=== PATIENT | female | born 1975 | race Caucasian/White ===

== ENCOUNTER 2017-01-16 15:35 | Emergency (ER) | payer SELFPAY ==
--- NOTE | 2017-01-16 16:05 | ER Document Report ---
HPI - HPI Patient complains to provider of: urinary symptoms Onset: This morning Onset/Duration: Gradual Quality of pain: Burning Pain Level: 3 Context: Patient presents complaining of urinary frequency, dysuria and hematuria that started this morning. Patient does complain of some suprapubic tenderness and right lower back pain. Patient does states she has chronic back pain and is uncertain if this back pain is her chronic pain or may be symptoms of possible kidney stone. Patient does report history kidney stones in the past. Patient denies any vomiting or fever. Associated Symptoms: denies: Fever, Nausea, Vomiting Exacerbated by: Denies Relieved by: Denies Similar symptoms previously: Yes Recently seen / treated by doctor: No - ROS ROS below otherwise negative: Yes Systems Reviewed and Negative: Yes All other systems reviewed and negative - CONSTITUTIONAL Constitutional: DENIES: Fever - NEURO Neurology: DENIES: Weakness - GASTROINTESTINAL Gastrointestinal: REPORTS: Abdominal Pain. 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 Denies: Hx Peritoneal Dialysis Musculoskeltal Medical History: Reports Hx Arthritis, Reports Other - chronic back pain Past Surgical History: Reports: Hx Hysterectomy, Hx Orthopedic Surgery - back surgery x3, Hx Thyroid Surgery - removed, Hx Tonsillectomy, Hx Tubal Ligation. Denies: Hx Pacemaker - Immunizations Hx Diphtheria, Pertussis, Tetanus Vaccination: Yes Vertical Provider Document - CONSTITUTIONAL Agree With Documented VS: Yes Exam Limitations: No Limitations General Appearance: WD/WN, No Apparent Distress - INFECTION CONTROL TRAVEL OUTSIDE OF THE [place] IN LAST 30 DAYS: No - HEENT HEENT: Atraumatic, Normocephalic - NECK Neck: Normal Inspection - RESPIRATORY Respiratory: Breath Sounds Normal, No Respiratory Distress O2 Sat by Pulse Oximetry: 98 - CARDIOVASCULAR Cardiovascular: Regular Rate, Regular Rhythm, No Murmur - GI/ABDOMEN Gastrointestinal: Abdomen Soft, Abdomen Tender - suprapubic tenderness, No Organomegaly - BACK Back: CVA Tenderness-Right. negative: CVA Tenderness-Left - MUSCULOSKELETAL/EXTREMETIES Musculoskeletal/Extremeties: GREGORY FROM - NEURO Level of Consciousness: Awake, Alert, Appropriate Motor/Sensory: No Motor Deficit - DERM Integumentary: Warm, Dry, No Rash Course - Re-evaluation Re-evalutation: 01/16/17 17:[address] Ambriz regarding pt presentation, hx and exam findings, Dr Ambriz recommends ct ltd. 01/16/17 18:[address] Ambriz who advises US imaging 01/16/17 20:25 Patient was provided with copies of her ultrasound and CT reports and instructed to follow-up with urology as well as grocery supervisor. Patient verbalized understanding and agrees with plan of care. - Vital Signs Vital signs: Temp Pulse Resp BP Pulse Ox 97.7 F 64 18 114/51 L 98 01/16/17 15:40 01/16/17 15:40 01/16/17 15:40 01/16/17 15:40 01/16/17 15:40 - Laboratory Result Diagrams: 01/16/17 16:38 01/16/17 16:38 - Diagnostic Test Radiology reviewed: Reports reviewed Discharge - Discharge Clinical Impression: UTI (urinary tract infection) Qualifiers: Urinary tract infection type: site unspecified Hematuria presence: with hematuria Qualified Code(s): N39.0 - Urinary tract infection, site not specified Fibroid uterus Qualifiers: Uterine leiomyoma location: unspecified location Qualified Code(s): D25.9 - Leiomyoma of uterus, unspecified Condition: Stable Disposition: HOME, SELF-CARE Instructions: Trimethoprim-Sulfa ([facility]), Urinary Tract Infection ([facility]), Urinary Anesthetic Agent ([facility]) Additional Instructions: Return immediately for any new or worsening symptoms Followup with your primary care provider, call tomorrow to make a followup appointment Follow-up with a urologist for further evaluation of intrarenal kidney stone as well as thickened wall of bladder Follow-up with a grocery supervisor for further evaluation of uterine fibroids Prescriptions: Phenazopyridine HCl [Pyridium 200 mg Tablet] 200 mg PO TID #15 tablet Sulfamethoxazole/Trimethoprim [Bactrim Ds Tablet] 1 each PO BID #20 tablet Forms: Parent Work Note Referrals: ELISHA PORTILLO MD [Primary Care Provider] - Follow up as needed UROLOGY [Provider Group] - Follow up in 3-5 days [facility] [Provider Group] - Follow up in 3-5 days
[2017-01-16 16:47] LABS: APPEARANCE,URINE CLOUDY; BILIRUBIN,URINE NEGATIVE (NEGATIVE); GLUCOSE, URINE NEGATIVE (NEGATIVE); KETONES,URINE NEGATIVE (NEGATIVE); LEUKOCYTE ESTERASE,URINE LARGE (NEGATIVE); NITRITE,URINE NEGATIVE (NEGATIVE); PROTEIN,URINE 100 mg/dL (NEGATIVE); URINE SPECIFIC GRAVITY 1.014; UROBILINOGEN,URINE NEGATIVE mg/dL (<2.0)
[2017-01-16 16:49] LABS: ABSOLUTE BASOPHILS # (AUTO) 0.1 10^3/uL (0.0-0.2); ABSOLUTE EOSINOPHILS # (AUTO) 0.4 10^3/uL (0.0-0.6); ABSOLUTE LYMPHOCYTES (AUTO) 2.3 10^3/uL (0.5-4.7); ABSOLUTE MONOCYTES (AUTO) 0.7 10^3/uL (0.1-1.4); ABSOLUTE NEUT (AUTO) 10.4 10^3/uL (1.7-8.2); BASOPHILS % (AUTO) 0.6 % (0-2); EOSINOPHILS % (AUTO) 2.6 % (0-6); HEMATOCRIT 38.2 % (36.0-47.0); HEMOGLOBIN 13.1 g/dL (12.0-15.5); HGB HCT DIFFERENCE 1.1; LYMPHOCYTES % (AUTO) 16.8 % (13-45); MEAN CORPUSCULAR HEMOGLOBIN 31.9 pg (27.0-33.4); MEAN CORPUSCULAR HGB CONC 34.2 g/dL (32.0-36.0); MEAN CORPUSCULAR VOLUME 93 fl (80-97); MONOCYTES % (AUTO) 5.3 % (3-13); RED CELL DISTRIBUTION WIDTH 14.2 % (11.5-14.0); SEGMENTED NEUTROPHILS % (AUTO) 74.7 % (42-78); WHITE BLOOD COUNT 13.9 10^3/uL (4.0-10.5)
[2017-01-16 17:09] LABS: ALANINE AMINOTRANSFERASE 40 U/L (9-52); ALBUMIN 3.9 g/dL (3.5-5.0); ALKALINE PHOSPHATASE 53 U/L (38-126); ANION GAP 9 (5-19); ASPARTATE AMINO TRANSFERASE 27 U/L (14-36); BILIRUBIN,DIRECT 0.3 mg/dL (0.0-0.4); BILIRUBIN,TOTAL 0.4 mg/dL (0.2-1.3); BLOOD UREA NITROGEN 15 mg/dL (7-20); CALCIUM 8.8 mg/dL (8.4-10.2); CARBON DIOXIDE 23 mmol/L (22-30); CHLORIDE 106 mmol/L (98-107); GLUCOSE 73 mg/dL (75-110); POTASSIUM 3.8 mmol/L (3.6-5.0); SODIUM 137.8 mmol/L (137-145); TOTAL PROTEIN 6.6 g/dL (6.3-8.2)
--- NOTE | 2017-01-16 18:12 | RADIOLOGY REPORT (SQ) ---
EXAM DESCRIPTION: CT LTD RENAL STONE PROTOCOL ON COMPLETED DATE/TIME: 01/16/2017 5:48 pm REASON FOR STUDY: r flank pain COMPARISON: None. TECHNIQUE: CT scan of the abdomen and pelvis performed without intravenous or oral contrast. Images reviewed with lung, soft tissue, and bone windows. Reconstructed coronal and sagittal MPR images revi ewed. All images stored on PACS. All CT scanners at this facility use dose modulation, iterative reconstruction, and/or weight based d osing when appropriate to reduce radiation dose to as low as reasonably achievable (ALARA). [facility]: Dose Right [facility]: CareDose [facility]: Dose Right [facility]: Teradose 4D [facility]: Smart Boutir RADIATION DOSE: Up-to-date CT equipment and radiation dose reduction techniques were employed. CTDIv ol: 6.8 mGy. DLP: 373 mGy-cm.mGy. LIMITATIONS: Lack of intraperitoneal fat and streak artifact from hardware of the lumbar spine limit s detail. FINDINGS: LOWER CHEST: Lung bases are clear. Likely small hiatus hernia. NON-CONTRASTED LIVER, SPLEEN, ADRENALS: Evaluation limited by lack of IV contrast. No identified sign ificant masses. PANCREAS: No masses. No peripancreatic inflammatory changes. GALLBLADDER: No identified stones by CT criteria. No inflammatory changes to suggest cholecystitis. RIGHT KIDNEY AND URETER: No suspicious masses. Assessment limited by lack of IV contrast. No signif icant calcifications. No hydronephrosis or hydroureter. LEFT KIDNEY AND URETER: No suspicious masses. Assessment limited by lack of IV contrast. Tiny 2 mm nonobstructing stone. No hydronephrosis or hydroureter. AORTA AND RETROPERITONEUM: No aneurysm. No retroperitoneal masses or adenopathy. BOWEL AND PERITONEAL CAVITY: No obvious masses or inflammatory changes. No free fluid. APPENDIX: Not visualized. PELVIS, BLADDER, AND ABDOMINAL WALL:Enlarged uterus. Wall thickening nondilated urinary bladder. Co nsider ultrasound follow-up for greater detail of the uterus. BONES: Operative hardware and disc spacer L5-S1. OTHER: No other significant finding. IMPRESSION: No hydronephrosis of either kidney. Tiny 2 mm nonobstructing stone left kidney. Pelvis densities concerning for enlarged uterus. Consider ultrasound for greater detail. Wall thickening nondilated urinary bladder. TECHNICAL DOCUMENTATION: JOB ID: [id number] Quality ID # [id number]: Final reports with documentation of one or more dose reduction techniques (e.g., Au tomated exposure control, adjustment of the mA and/or kV according to patient size, use of iterative reconstruction technique) 2010 [employer]- All Rights Reserved
[2017-01-16] MEDS ORDERED: SULFAMETHOXAZOLE/TRIMETHOPRIM 800-160 MG TABLET PO ONE (18:31)
[2017-01-16] MEDS ORDERED: LIDOCAINE 1% INJ-PF (10 MG/ML) 30 ML SDV INJ ONE (18:31)
[2017-01-16] MEDS ORDERED: CEFTRIAXONE INJ 1000 MG VIAL IM ONE ×2 (18:31→19:09)
--- NOTE | 2017-01-16 20:08 | RADIOLOGY REPORT (SQ) ---
EXAM DESCRIPTION: U/S NON OB PEL TV W/DOPPLER COMPLETED DATE/TIME: 01/16/2017 7:59 pm REASON FOR STUDY: eval enlarged uterus COMPARISON: CT dated 01/16/2017. TECHNIQUE: Dynamic and static grayscale images acquired of the pelvis via transvaginal approach and recorded on PACS. Additional selected color Doppler and spectral images recorded. LIMITATIONS: None. FINDINGS: UTERUS: Multiple heterogeneous lesion seen within the uterus suggestive of underlying fibr oids. The largest these measures approximately 4.5 x 4.0 x 3.8 cm. ENDOMETRIAL STRIPE: No focal or generalized thickening. No masses. CERVIX: No nabothian cysts. RIGHT OVARY: No abnormal masses. RIGHT OVARY DOPPLER: Normal arterial vascular flow without evidence for torsion. LEFT OVARY: No abnormal masses. LEFT OVARY DOPPLER: Normal arterial vascular flow without evidence for torsion. FREE FLUID: None noted. OTHER: No other significant finding. MEASUREMENTS: UTERUS: 10.1 x 6.6 cm ENDOMETRIAL STRIPE: 2 mm RIGHT OVARY: 2.7 x 2.7 x 3.0 cm LEFT OVARY: 2.5 x 1.8 x 3.0 cm IMPRESSION: Fibroid uterus the largest which measures 4.5 x 4.0 x 3.8 cm. No other significant abno rmality identified. No evidence of ovarian torsion. TECHNICAL DOCUMENTATION: JOB ID: [id number] [employer]- All Rights Reserved
[2017-01-16 20:44] VITALS: BP 102/51
== END 2017-01-16 20:44 | disposition home or self-care (01) ==
LOC: ER 15:35
DX: N39.0 Urinary tract infection, site not specified (principal); R31.9 Hematuria, unspecified; D25.9 Leiomyoma of uterus, unspecified; M54.5 Low back pain; G89.29 Other chronic pain; F17.200 Nicotine dependence, unspecified, uncomplicated
CPT/HCPCS: 99284; 96372; 36415; 87086; 85025; 81025; 87088; 80053; 81001; 87186; 76830; 93976; 76380; J3490; J0696

== ENCOUNTER 2017-02-18 13:41 | Emergency (ER) | payer SELFPAY ==
--- NOTE | 2017-02-18 14:35 | ER Document Report ---
ED Medical Screen (RME) - General Chief Complaint: Abdominal Pain Stated Complaint: ABDOMINAL PAIN Time Seen by Provider: 02/18/17 14:32 Notes: Patient reports bilateral lower quadrant abdominal pain. She has also been lightheaded and dizzy. She denies any vaginal bleeding. No urinary symptoms. No problems with stool. TRAVEL OUTSIDE OF THE [place] IN LAST 30 DAYS: No - Related Data Allergies/Adverse Reactions: No Known Allergies Allergy (Verified 02/18/17 13:48) Home Medications: Current Home Medications Gabapentin 300 mg PO QID 02/18/17 [History] Levothyroxine Sodium [Synthroid] 175 mcg PO 02/18/17 [History] Methadone HCl QID 02/18/17 [History] Past Medical History - Past Medical History Cardiac Medical History: Denies: Hx Coronary Artery Disease, Hx Heart Attack, Hx Hypertension Pulmonary Medical History: Denies: Hx Asthma, Hx Bronchitis, Hx COPD, Hx Pneumonia Neurological Medical History: Denies: Hx Cerebrovascular Accident, Hx Seizures Endocrine Medical History: Reports: Hx Hypothyroidism Renal/ Medical History: Reports: Hx Kidney Stones. Denies: Hx Peritoneal Dialysis Musculoskeltal Medical History: Reports Hx Arthritis Past Surgical History: Reports: Hx Hysterectomy, Hx Orthopedic Surgery - back surgery x3, Hx Thyroid Surgery - removed, Hx Tonsillectomy, Hx Tubal Ligation. Denies: Hx Pacemaker - Immunizations Hx Diphtheria, Pertussis, Tetanus Vaccination: Yes Physical Exam - Vital signs Vitals: Temp Pulse Resp 97.8 F 66 20 02/18/17 13:52 02/18/17 13:52 02/18/17 13:52 Course - Vital Signs Vital signs: Temp Pulse Resp BP Pulse Ox 97.8 F 66 20 02/18/17 13:52 02/18/17 13:52 02/18/17 13:52
[2017-02-18 15:00] LABS: ABSOLUTE BASOPHILS # (AUTO) 0.1 10^3/uL (0.0-0.2); ABSOLUTE EOSINOPHILS # (AUTO) 0.4 10^3/uL (0.0-0.6); ABSOLUTE LYMPHOCYTES (AUTO) 2.6 10^3/uL (0.5-4.7); ABSOLUTE MONOCYTES (AUTO) 0.5 10^3/uL (0.1-1.4); ABSOLUTE NEUT (AUTO) 5.4 10^3/uL (1.7-8.2); BASOPHILS % (AUTO) 1.2 % (0-2); EOSINOPHILS % (AUTO) 4.5 % (0-6); HEMATOCRIT 40.4 % (36.0-47.0); HEMOGLOBIN 13.8 g/dL (12.0-15.5); LYMPHOCYTES % (AUTO) 28.4 % (13-45); MEAN CORPUSCULAR HEMOGLOBIN 31.9 pg (27.0-33.4); MEAN CORPUSCULAR HGB CONC 34.2 g/dL (32.0-36.0); MEAN CORPUSCULAR VOLUME 93 fl (80-97); RED BLOOD COUNT 4.33 10^6/uL (3.72-5.28); RED CELL DISTRIBUTION WIDTH 15.2 % (11.5-14.0); SEGMENTED NEUTROPHILS % (AUTO) 59.9 % (42-78); WHITE BLOOD COUNT 9.1 10^3/uL (4.0-10.5)
[2017-02-18 15:02] LABS: APPEARANCE,URINE SLIGHTLY-CLOUDY; BILIRUBIN,URINE NEGATIVE (NEGATIVE); CALCIUM OXALATE CRYSTALS,URINE MODERATE /HPF; GLUCOSE, URINE NEGATIVE (NEGATIVE); KETONES,URINE NEGATIVE (NEGATIVE); LEUKOCYTE ESTERASE,URINE NEGATIVE (NEGATIVE); NITRITE,URINE NEGATIVE (NEGATIVE); PROTEIN,URINE NEGATIVE (NEGATIVE); URINE SPECIFIC GRAVITY 1.023
[2017-02-18 15:04] LABS: POTASSIUM 3.6 mmol/L (3.6-5.0)
[2017-02-18 15:06] LABS: ALBUMIN 4.5 g/dL (3.5-5.0); ALKALINE PHOSPHATASE 44 U/L (38-126); ANION GAP 9 (5-19); ASPARTATE AMINO TRANSFERASE 56 U/L (14-36); BILIRUBIN,DIRECT 0.4 mg/dL (0.0-0.4); BILIRUBIN,TOTAL 0.5 mg/dL (0.2-1.3); BLOOD UREA NITROGEN 18 mg/dL (7-20); CALCIUM 9.6 mg/dL (8.4-10.2); CARBON DIOXIDE 27 mmol/L (22-30); CHLORIDE 106 mmol/L (98-107); CREATININE RESULT 0.93 mg/dL (0.52-1.25); GLUCOSE 73 mg/dL (75-110); SODIUM 142.4 mmol/L (137-145); TOTAL PROTEIN 6.9 g/dL (6.3-8.2)
[2017-02-18 15:08] LABS: ALANINE AMINOTRANSFERASE 97 U/L (9-52)
--- NOTE | 2017-02-18 17:18 | RADIOLOGY REPORT (SQ) ---
EXAM DESCRIPTION: U/S NON OB PEL TV W/DOPPLER COMPLETED DATE/TIME: 02/18/2017 4:59 pm REASON FOR STUDY: Lower mid abd/plvc pain, negative COMPARISON: 01/16/2017 TECHNIQUE: Dynamic and static grayscale images acquired of the pelvis via transvaginal approach and recorded on PACS. Additional selected color Doppler and spectral images recorded. LIMITATIONS: None. FINDINGS: UTERUS: Multiple fibroids again noted with the largest measuring 5.4 cm. ENDOMETRIAL STRIPE: No focal or generalized thickening. No masses. CERVIX: No nabothian cysts. RIGHT OVARY: No abnormal masses. Collapsing follicle. RIGHT OVARY DOPPLER: Normal arterial vascular flow without evidence for torsion. LEFT OVARY: No abnormal masses. LEFT OVARY DOPPLER: Normal arterial vascular flow without evidence for torsion. FREE FLUID: None noted. OTHER: No other significant finding. MEASUREMENTS: UTERUS: 10.2 x 9.0 x 5.6 cm. ENDOMETRIAL STRIPE: 8 mm. RIGHT OVARY: 6.3 x 4.5 x 3.5 cm. LEFT OVARY: 2.7 x 3.0 x 1.5 cm. IMPRESSION: FIBROID UTERUS. NO SIGNIFICANT OVARIAN MASS OR TORSION. NO SIGNIFICANT CHANGE FROM 01/16/2017. TECHNICAL DOCUMENTATION: JOB ID: [id number] [employer]- All Rights Reserved
[2017-02-18 17:35] LABS: CHLAM PCR NOT DETECTED (NOT DETECT)
--- NOTE | 2017-02-18 18:23 | ER Document Report ---
ED GI/ - General Chief Complaint: Abdominal Pain Stated Complaint: ABDOMINAL PAIN Time Seen by Provider: 02/18/17 14:32 Notes: Patient is experiencing lower midline abdominal pain that started yesterday morning. Prior to that, over the weekend, she had had some lightheaded and dizzy spells with tingling of her arms and legs. Also having aching and cold symptoms Friday. Her pain is so uncomfortable now that she is having difficulty standing up straight. Has been nauseated but not vomiting. No diarrhea. Last bowel movement was yesterday. Not running any fever. Denies any UTI symptoms or history of kidney stones. Denies URI symptoms or cough or chest congestion. Reviewing patient's record shows the patient was here in December, 1 month ago, and had an ultrasound showing uterine fibroids. TRAVEL OUTSIDE OF THE [place] IN LAST 30 DAYS: No - Related Data Allergies/Adverse Reactions: No Known Allergies Allergy (Verified 02/18/17 13:48) Home Medications: Current Home Medications Gabapentin 300 mg PO QID 02/18/17 [History] Levothyroxine Sodium [Synthroid] 175 mcg PO DAILY 02/18/17 [History] Methadone HCl 10 mg PO TID 02/18/17 [History] Naproxen 500 mg PO PRN PRN 02/18/17 [History] Past Medical History - Social History Smoking Status: Never Smoker Chew tobacco use (# tins/day): No Frequency of alcohol use: None Drug Abuse: None Family History: Reviewed & Not Pertinent, CAD, DM, Hypertension Patient has suicidal ideation: No Patient has homicidal ideation: No Endocrine Medical History: Reports: Hx Hypothyroidism, Other - 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 Renal/ Medical History: Reports: Hx Kidney Stones Musculoskeltal Medical History: Reports Hx Arthritis, Reports Other - Back surgery and chronic back pain on methadone and Neurontin. Past Surgical History: Reports: Hx Gynecologic Surgery - NovaSure uterine ablation about 5 years ago., Hx Hysterectomy, Hx Orthopedic Surgery - back surgery x3, Hx Thyroid Surgery - removed, Hx Tonsillectomy, Hx Tubal Ligation - Immunizations Hx Diphtheria, Pertussis, Tetanus Vaccination: Yes Review of Systems - Review of Systems Notes: REVIEW OF SYSTEMS: CONSTITUTIONAL : Denies fever. EENT: Denies eye, ear, nose or mouth or throat pain or other symptoms. CARDIOVASCULAR: Denies chest pain. RESPIRATORY: Denies cough, chest congestion, or shortness of breath. Gastroenterology: See HPI. GENITOURINARY: Denies difficulty or painful urinating, urinary frequency, blood in urine. MUSCULOSKELETAL: Denies back or neck pain. Denies joint pain or swelling. SKIN: Denies rash or skin lesions. NEUROLOGICAL: Denies LOC or altered mental status. Denies headache. Denies sensory loss or motor deficits. ALL OTHER SYSTEMS REVIEWED AND NEGATIVE. Physical Exam - Vital signs Vitals: Temp Pulse Resp 97.8 F 66 20 02/18/17 13:52 02/18/17 13:52 02/18/17 13:52 Interpretation: Normal - Notes Notes: PHYSICAL EXAMINATION: GENERAL: Well-appearing, in no acute distress. Vital signs are all essentially normal. HEAD: Atraumatic, normocephalic. NECK: Normal range of motion, supple. LUNGS: Breath sounds clear and equal bilaterally. HEART: Regular rate and rhythm without murmurs. ABDOMEN: Soft, mild tenderness in the suprapubic area. No guarding or rebound. No masses felt. No bruits heard. BACK: No tenderness throughout entire back. EXTREMITIES: Normal range of motion without pain. NEUROLOGICAL: Normal speech, normal gait. Normal sensory, motor, and reflex exams. Awake, alert, and oriented x3. Cranial nerves normal. PSYCH: Normal mood, normal affect. SKIN: Warm, dry, no rashes. - Genitourinary External exam: Normal Speculum exam: Cervix closed. No: Vaginal discharge, Lesions Vaginal bleeding: None Bimanuel exam: Uterus enlarged. No: Cervical motion tender, Adnexal mass, Adnexal tenderness Course - Vital Signs Vital signs: Temp Pulse Resp BP Pulse Ox 97.7 F 55 L 18 106/60 97 02/18/17 18:30 02/18/17 18:30 02/18/17 18:30 02/18/17 18:30 02/18/17 18:30 - Laboratory Result Diagrams: 02/18/17 14:35 02/18/17 14:35 Laboratory results interpreted by me: 02/18/17 02/18/17 02/18/17 14:35 14:35 14:35 RDW 15.2 H Glucose 73 L AST 56 H ALT 97 H Urine Urobilinogen 2.0 H - Diagnostic Test Radiology reviewed: Image reviewed, Reports reviewed - Ultrasound shows multiple uterine fibroids. Discharge - Discharge Clinical Impression: Pelvic pain, Uterine fibroid Condition: Stable Disposition: HOME, SELF-CARE Additional Instructions: PELVIC PAIN: There are many causes of pain in the pelvic area. The cause could be the tubes, ovaries, uterus, intestines, appendix, pelvic muscles and connective tissue, or the urinary tract. The cause of your pelvic pain is not clear. However, it seems safe to treat you outside the hospital. If the pain sounds like a temporary problem, we sometimes wait to see if it goes away. Other patients may need additional tests, such as pelvic ultrasound or cultures. Conditions may change. Call us or come back for reexamination if any problems occur, such as: (1) Pain that becomes more severe, steady, or becomes concentrated in one specific area. Also, pain that is more severe with movement or coughing. (2) Vomiting that persists or becomes more frequent. (3) Blood in the vomitus, urine, or bowel movements. Blood in the stool may have a tarry or black appearance. (4) Shaking chills or fever greater than 100 degrees. (5) The abdomen becomes more distended or swollen. (6) Bowel movements cease. (7) Heavy vaginal bleeding. Fibroids Fibroids are benign growths in the uterus. They can cause enlargement of the uterus, irregular bleeding, sever bleeding with periods, and abdominal pain. Anemia may result if periods are heavy. Fibroids tend to grow until menopause, then slwly shrink. If fibroids cause severe symptoms, they can be treated surgically. Call or return if vaginal bleeding or pain becomes severe. Ibuprofen Ibuprofen is an excellent, safe drug for pain control. In addition, it has potent antiinflammatory effects which are beneficial, especially in the treatment of injuries, arthritis, or tendonitis. It's best to take ibuprofen with food. Persons with ulcer disease or allergy to aspirin should notify their physician of this before taking ibuprofen. Take the medication exactly as prescribed. Don't take additional doses unless instructed to do so by your doctor. If you develop wheezing, shortness of breath, hives, faintness, stomach pain, vomiting, or dark black stools, return for re-evaluation at once. ORAL NARCOTIC MEDICATION: You have been given a prescription for pain control. This medication is a narcotic. It's best taken with food, as nausea can result if taken on an empty stomach. Don't operate machinery or drive within six hours of taking this medication. Do not combine this medicine with alcohol, or with any medication which can cause sedation (such as cold tablets or sleeping pills) unless you get permission from the physician. Narcotics tend to cause constipation. If possible, drink plenty of fluids and eat a diet high in fiber and fruits. FOLLOW-UP CARE: If you have been referred to a physician for follow-up care, call the physician s office for an appointment as you were instructed or within the next two days. If you experience worsening or a significant change in your symptoms, notify the physician immediately or return to the Emergency Department at any time for re-evaluation. If you wish to pursue further care for these findings of uterine fibroids, I recommend that you follow-up at [facility] for possible surgical removal Prescriptions: Oxycodone HCl/Acetaminophen [Percocet 5-325 mg Tablet] 1 - 2 tab PO Q4H PRN #15 tablet PRN Reason: Forms: Return to Work Referrals: [facility] [Provider Group] - Follow up as needed
[2017-02-18 18:53] VITALS: BP 106/60
== END 2017-02-18 18:30 | disposition home or self-care (01) ==
LOC: ER 13:41
DX: D25.9 Leiomyoma of uterus, unspecified (principal); R10.2 Pelvic and perineal pain; R11.0 Nausea; E89.0 Postprocedural hypothyroidism; Z85.850 Personal history of malignant neoplasm of thyroid; Z90.710 Acquired absence of both cervix and uterus
CPT/HCPCS: 36415; 76830; 80053; 81001; 81025; 83690; 85025; 87210; 87491; 87591; 93976; 99284

== ENCOUNTER 2017-12-27 06:56 | Emergency (ER) | payer BC, MEDICAID ==
--- NOTE | 2017-12-27 07:37 | ER Document Report ---
HPI - HPI Patient complains to provider of: Dysuria Onset: Yesterday Onset/Duration: Gradual Quality of pain: Burning Pain Level: 4 Context: Patient presents complaining of lower pelvic pain with hematuria and urinary frequency. Patient denies any fever, nausea or vomiting. Patient denies any concerns about STD. Associated Symptoms: Other - frequency, hematuria. denies: Fever Exacerbated by: Denies Relieved by: Denies Similar symptoms previously: Yes Recently seen / treated by doctor: No - ROS ROS below otherwise negative: Yes Systems Reviewed and Negative: Yes All other systems reviewed and negative - GASTROINTESTINAL Gastrointestinal: REPORTS: Abdominal Pain. 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 Denies: Hx Peritoneal Dialysis Musculoskeltal Medical History: Reports Hx Arthritis, Reports Other - Chronic back pain Past Surgical History: Reports: Hx Gynecologic Surgery - NovaSure uterine ablation about 5 years ago., Hx Hysterectomy, Hx Orthopedic Surgery - back surgery x3, Hx Thyroid Surgery - removed, Hx Tonsillectomy, Hx Tubal Ligation. Denies: Hx Pacemaker - Immunizations Hx Diphtheria, Pertussis, Tetanus Vaccination: Yes Vertical Provider Document - CONSTITUTIONAL Agree With Documented VS: Yes Exam Limitations: No Limitations General Appearance: WD/WN, No Apparent Distress - INFECTION CONTROL TRAVEL OUTSIDE OF THE [place] IN LAST 30 DAYS: No - HEENT HEENT: Atraumatic, Normocephalic - NECK Neck: Normal Inspection, Supple - RESPIRATORY Respiratory: Breath Sounds Normal, No Respiratory Distress - CARDIOVASCULAR Cardiovascular: Regular Rate, Regular Rhythm, No Murmur - GI/ABDOMEN Gastrointestinal: Abdomen Non-Tender, Abdomen Tender - Suprapubic tenderness, Normal Bowel Sounds. negative: Abdominal Guarding - BACK Back: Abnormal Inspection - Lumbar paraspinal tenderness. negative: CVA Tenderness-Right, CVA Tenderness-Left - MUSCULOSKELETAL/EXTREMETIES Musculoskeletal/Extremeties: EMORY JENKINS - NEURO Level of Consciousness: Awake, Alert, Appropriate Motor/Sensory: No Motor Deficit - DERM Integumentary: Warm, Dry, No Rash Course - Re-evaluation Re-evalutation: 12/27/17 08:40 Patient presents with symptoms consistent with UTI, culture urine. No concern for obstructive uropathy. Patient nontoxic in appearance. - Vital Signs Vital signs: Temp Pulse Resp BP Pulse Ox 97.6 F 72 18 119/64 97 12/27/17 07:01 12/27/17 07:01 12/27/17 07:01 12/27/17 07:01 12/27/17 07:01 - Laboratory Laboratory results interpreted by me: 12/27/17 08:40 Labs- Entire Visit 12/27/17 07:14 Urine Color MAHI Urine Appearance CLOUDY Urine pH 6.0 Ur Specific [place] 1.021 Urine Protein 100 H Urine Glucose (UA) NEGATIVE Urine Ketones TRACE H Urine Blood MODERATE H Urine Nitrite POSITIVE H Urine Bilirubin NEGATIVE Urine Urobilinogen 4.0 H Ur Leukocyte Esterase MODERATE H Urine WBC (Auto) >182 Urine RBC (Auto) 84 Urine Bacteria (Auto) 1+ Urine WBC Clumps FEW Squamous Epi Cells Auto 1 U Non-Squamous Epis Auto 3 Urine Mucus (Auto) MANY Urine Ascorbic Acid NEGATIVE Urine HCG, Qual NEGATIVE Discharge - Discharge Clinical Impression: UTI (urinary tract infection) Qualifiers: Urinary tract infection type: site unspecified Hematuria presence: with hematuria Qualified Code(s): N39.0 - Urinary tract infection, site not specified Condition: Stable Disposition: HOME, SELF-CARE Instructions: Cephalexin ([facility]), Urinary Anesthetic Agent ([facility]), Urinary Tract Infection ([facility]) Additional Instructions: Return immediately for any new or worsening symptoms Followup with your primary care provider, call tomorrow to make a followup appointment Prescriptions: Cephalexin Monohydrate [Keflex 500 mg Capsule] 500 mg PO Q6H 7 Days capsule Phenazopyridine HCl [Pyridium 200 mg Tablet] 200 mg PO TID #15 tablet Forms: Return to Work Referrals: ELISHA PORTILLO MD [NO LOCAL MD] - Follow up as needed
[2017-12-27 08:00] LABS: APPEARANCE,URINE CLOUDY; BILIRUBIN,URINE NEGATIVE (NEGATIVE); COLOR,URINE AMBER; GLUCOSE, URINE NEGATIVE (NEGATIVE); KETONES,URINE TRACE mg/dL (NEGATIVE); LEUKOCYTE ESTERASE,URINE MODERATE (NEGATIVE); NITRITE,URINE POSITIVE (NEGATIVE); PROTEIN,URINE 100 mg/dL (NEGATIVE); URINE SPECIFIC GRAVITY 1.021
[2017-12-27] MEDS ORDERED: LIDOCAINE 1% INJ-PF (10 MG/ML) 30 ML SDV INJ ONE (08:39)
[2017-12-27] MEDS ORDERED: PHENAZOPYRIDINE HCL 200 MG TABLET PO ONE (08:39)
[2017-12-27] MEDS ORDERED: CEFTRIAXONE INJ 1000 MG VIAL IM ONE (08:39)
[2017-12-27 09:27] VITALS: BP 94/43
== END 2017-12-27 09:27 | disposition home or self-care (01) ==
LOC: ER 06:56
DX: N39.0 Urinary tract infection, site not specified (principal); R31.9 Hematuria, unspecified; R10.2 Pelvic and perineal pain; R35.0 Frequency of micturition; M54.5 Low back pain; G89.29 Other chronic pain; F17.200 Nicotine dependence, unspecified, uncomplicated; Z87.442 Personal history of urinary calculi; Z90.710 Acquired absence of both cervix and uterus; Z98.51 Tubal ligation status
CPT/HCPCS: 99283; 96372; 87086; 81025; 87088; 81001; 87186; J3490 ×2; J0696

== ENCOUNTER 2018-05-04 22:59 | Emergency (ER) | payer BC ==
--- NOTE | 2018-05-05 01:30 | ER Document Report ---
ED Extremity Problem, Lower - General Chief Complaint: Leg Pain Stated Complaint: BACK OF LEFT KNEE PAIN/BUMP Time Seen by Provider: 05/05/18 01:07 Mode of Arrival: Ambulatory Information source: Patient Notes: 33-year-old female presents to the emergency room with wound to the back of her left knee. She is noticed it for the last several days. She denies any fever, chills, nausea vomiting. TRAVEL OUTSIDE OF THE [place] IN LAST 30 DAYS: No - HPI Patient complains to provider of: Pain, Swelling. No: Altered sensation, Injury Location: Knee Occurred: Last week Where: Home Onset/Duration: Gradual Quality of pain: Dull Severity: Mild Pain Level: Denies Recent injury: No Associated symptoms: denies: Hopkins a pop, Hurts to breath Exacerbated by: Movement Relieved by: Rest - Related Data Allergies/Adverse Reactions: No Known Allergies Allergy (Verified 02/18/17 13:48) Past Medical History - General Information source: Patient - Social History Smoking Status: Current Some Day Smoker Cigarette use (# per day): Yes - 1 pack/day Chew tobacco use (# tins/day): No Frequency of alcohol use: Rare Drug Abuse: None Lives with: Family Family History: Reviewed & Not Pertinent, CAD, DM, Hypertension Patient has suicidal ideation: No Patient has homicidal ideation: No - Past Medical History Cardiac Medical History: Denies: Hx Coronary Artery Disease, Hx Heart Attack, Hx Hypertension Pulmonary Medical History: Denies: Hx Asthma, Hx Bronchitis, Hx COPD, Hx Pneumonia Neurological Medical History: Denies: Hx Cerebrovascular Accident, Hx Seizures Endocrine Medical History: Reports: Hx Hypothyroidism Renal/ Medical History: Reports: Hx Kidney Stones. Denies: Hx Peritoneal Dialysis Musculoskeletal Medical History: Reports Hx Arthritis Past Surgical History: Reports: Hx Gynecologic Surgery - NovaSure uterine ablation about 5 years ago., Hx Hysterectomy, Hx Orthopedic Surgery - back surgery x3, Hx Thyroid Surgery - removed, Hx Tonsillectomy, Hx Tubal Ligation. Denies: Hx Pacemaker - Immunizations Hx Diphtheria, Pertussis, Tetanus Vaccination: Yes Review of Systems - Review of Systems Constitutional: denies: Chills, Fever EENT: No symptoms reported Cardiovascular: No symptoms reported Respiratory: No symptoms reported Gastrointestinal: No symptoms reported Genitourinary: No symptoms reported Female Genitourinary: No symptoms reported Musculoskeletal: See HPI Skin: No symptoms reported Hematologic/Lymphatic: No symptoms reported Neurological/Psychological: No symptoms reported Physical Exam - Vital signs Vitals: Temp Pulse Resp BP Pulse Ox 98 F 64 18 115/63 97 05/04/18 23:00 05/04/18 23:00 05/04/18 23:00 05/04/18 23:00 05/04/18 23:00 Notes: Physical exam: GENERAL: HEAD: Atraumatic, normocephalic. EYES: Pupils equal round and reactive to light, extraocular movements intact, sclera anicteric, conjunctiva are normal. ENT: TMs normal, nares patent, oropharynx clear without exudates. Moist mucous membranes. NECK: Normal range of motion, supple without obvious mass or JVD. LUNGS: Breath sounds clear to auscultation bilaterally and equal. No wheezes rales or rhonchi. HEART: Regular rate and rhythm without murmurs, rubs or gallops. ABDOMEN: Soft, normoactive bowel sounds. No tenderness to palpation. No guarding, no rebound. No masses appreciated. EXTREMITIES: Normal range of motion, no pitting or edema. No clubbing or cyanosis. Patient does have fullness behind the left knee in the popliteal fossa. It feels cystic. There is no substernal component. NEUROLOGICAL: Cranial nerves II through XII grossly intact. Normal speech, moving all extremities. PSYCH: Normal mood, normal affect. SKIN: Warm, Dry, normal turgor, no rashes or lesions noted. Side ultrasound reveals a cyst in the left popliteal fossa. There is no color flow. He is not pulsatile. Course - Vital Signs Vital signs: Temp Pulse Resp BP Pulse Ox 98.2 F 60 20 103/64 98 05/05/18 02:06 05/05/18 02:06 05/05/18 02:06 05/05/18 02:06 05/05/18 02:06 Discharge - Discharge Clinical Impression: Left popliteal fossa cyst Condition: Stable Disposition: HOME, SELF-CARE Instructions: Bustillo's Cyst ([facility]) Additional Instructions: Your exam is consistent with a cyst behind the left knee. Cyst can sometimes be drained. They will sometimes rupture on their own. See the instruction sheet on Bustillo's cyst. Follow-up with the orthopedic surgeon: I left the number on the chart. Referrals: OLIVER PORTILLO MD [Primary Care Provider] - Follow up as needed ADAM TOLBERT MD [ACTIVE STAFF] - Follow up as needed (Is the number the orthopedic surgeon)
[2018-05-05 02:08] VITALS: BP 103/64
== END 2018-05-05 02:07 | disposition home or self-care (01) ==
LOC: ER 22:59
DX: M71.22 Synovial cyst of popliteal space [Baker], left knee (principal); M25.562 Pain in left knee; M79.89 Other specified soft tissue disorders; F17.210 Nicotine dependence, cigarettes, uncomplicated
CPT/HCPCS: 99283

== ENCOUNTER → 2018-08-03 | Outpatient (CLI) | payer BC ==
--- NOTE | 2018-08-03 17:00 | EKG REPORT ---
SEVERITY:- BORDERLINE ECG - SINUS RHYTHM LOW VOLTAGE IN FRONTAL LEADS BORDERLINE T ABNORMALITIES, DIFFUSE LEADS : Confirmed by: Juanita Ho 03-Aug-2018 16:59:39
== END ==
LOC: OD 13:23
PROVIDERS: ATTEND Anesthesiology Pain Medicine
DX: Z51.81 Encounter for therapeutic drug level monitoring (principal); Z79.891 Long term (current) use of opiate analgesic
CPT/HCPCS: 93005; 93010

== ENCOUNTER 2019-01-18 05:39 | Inpatient (IN) | payer BC ==
[2019-01-11 09:42] LABS: HEMATOCRIT 43.1 % (36.0-47.0); HEMOGLOBIN 14.6 g/dL (12.0-15.5); MEAN CORPUSCULAR HGB CONC 33.9 g/dL (32.0-36.0); MEAN CORPUSCULAR VOLUME 92 fl (80-97); PLATELET COUNT 209 10^3/uL (150-450); RED BLOOD COUNT 4.71 10^6/uL (3.72-5.28); WHITE BLOOD COUNT 10.5 10^3/uL (4.0-10.5)
[2019-01-11 09:49] LABS: AMORPHOUS SEDIMENT,URINE TRACE /HPF; APPEARANCE,URINE CLOUDY; BILIRUBIN,URINE NEGATIVE (NEGATIVE); COLOR,URINE YELLOW; GLUCOSE, URINE >=500 mg/dL (NEGATIVE); KETONES,URINE NEGATIVE (NEGATIVE); LEUKOCYTE ESTERASE,URINE NEGATIVE (NEGATIVE); NITRITE,URINE NEGATIVE (NEGATIVE); PROTEIN,URINE NEGATIVE (NEGATIVE); URINE SPECIFIC GRAVITY 1.021; UROBILINOGEN,URINE NEGATIVE mg/dL (<2.0)
[2019-01-11 10:06] LABS: ANION GAP 8 (5-19); BLOOD UREA NITROGEN 10 mg/dL (7-20); CALCIUM 9.5 mg/dL (8.4-10.2); CARBON DIOXIDE 23 mmol/L (22-30); CHLORIDE 107 mmol/L (98-107); GLUCOSE 185 mg/dL (75-110); POTASSIUM 4.2 mmol/L (3.6-5.0)
--- NOTE | 2019-01-11 12:25 | RADIOLOGY REPORT (SQ) ---
EXAM DESCRIPTION: CHEST PA/LATERAL COMPLETED DATE/TIME: 01/11/2019 9:58 am REASON FOR STUDY: PRE-OP COMPARISON: 03/31/2013 TECHNIQUE: Frontal and lateral radiographic views of the chest acquired. NUMBER OF VIEWS: Two view. LIMITATIONS: None. FINDINGS: LUNGS AND PLEURA: No pneumothorax. No consolidation or pleural effusion. MEDIASTINUM AND HILAR STRUCTURES: Stable. HEART AND VASCULAR STRUCTURES: Stable. BONES: No acute findings. HARDWARE: None in the chest. OTHER: No other significant finding. IMPRESSION: NO ACUTE FINDINGS. TECHNICAL DOCUMENTATION: JOB ID: [id number] 2010 [employer]- All Rights Reserved Reading location - IP/workstation name: [email or web address]
--- NOTE | 2019-01-12 19:03 | EKG REPORT ---
SEVERITY:- ABNORMAL ECG - SINUS RHYTHM NONSPECIFIC T ABNORMALITIES, ANTERIOR LEADS : Confirmed by: Neel Muhammad MD 12-Jan-2019 19:03:36
[~2019-01-18 05:39] MED LIST: CEFAZOLIN 1 GM/D5W RTU 1 GM/50 ML RTUPB IV PRN; LACTATED RINGERS 1000 ML IV PRN; LIDOCAINE 0.5% INJ-PF (5 MG/ML) 50 ML SDV SUBCUT PRN
[2019-01-18] MEDS ORDERED: CEFAZOLIN 1 GM/D5W RTU 1 GM/50 ML RTUPB IV ONE (05:44)
[2019-01-18] MEDS ORDERED: FENTANYL CITRATE INJ/PF 100 MCG/2 ML AMPUL ONE (06:21)
[2019-01-18] MEDS ORDERED: SUGAMMADEX SODIUM 200 MG/2 ML SDV IV ONE (06:22)
[2019-01-18] MEDS ORDERED: ONDANSETRON HCL INJ/PF 4 MG/2 ML SDV ONE (06:22)
[2019-01-18] MEDS ORDERED: DEXAMETHASONE SOD PHOSPHATE INJ 4 MG/1 ML VIAL ONE (06:22)
[2019-01-18] MEDS ORDERED: PROPOFOL INJ 200 MG/20 ML VIAL IV ONE (06:22)
[2019-01-18] MEDS ORDERED: MIDAZOLAM 2 MG/2 ML INJ ONE ×2 (06:22→09:20)
[2019-01-18] MEDS ORDERED: LIDOCAINE 0.5% INJ-PF (5 MG/ML) 50 ML SDV ONE (06:25)
[2019-01-18] MEDS ORDERED: BUPIVACAINE INJ/PF LIPOSOME/PF 266 MG/20 ML SDV ONE (07:46)
[2019-01-18] MEDS ORDERED: PROMETHAZINE HCL INJ 25 MG/1 ML VIAL IV PRN ×2 (07:48)
[2019-01-18] MEDS ORDERED: MEPERIDINE HCL/PF INJ 25 MG/1 ML DISP.SYRIN IV PRN (07:48)
[2019-01-18] MEDS ORDERED: DIPHENHYDRAMINE HCL 50 MG/ML VIAL IV PRN (07:48)
[2019-01-18] MEDS ORDERED: ONDANSETRON HCL INJ/PF 4 MG/2 ML SDV IV PRN (07:48)
[2019-01-18] MEDS ORDERED: FENTANYL CITRATE INJ/PF 100 MCG/2 ML AMPUL IV PRN ×3 (07:48)
[2019-01-18] MEDS: HYDROMORPHONE HCL INJ/PF 2 MG/ML AMPULE ONE ×2 (09:21→09:32)
[2019-01-18] MEDS ORDERED: GLYCOPYRROLATE 1 MG/5 ML VIAL ONE (09:27)
[2019-01-18] MEDS ORDERED: ROCURONIUM BROMIDE INJ 50 MG/5 ML VIAL IV ONE (09:27)
[2019-01-18] MEDS ORDERED: SUCCINYLCHOLINE CHLORIDE INJ 200 MG/10 ML VIAL ONE (09:27)
[2019-01-18] MEDS ORDERED: PHENYLEPHRINE HCL INJ/PF 10 MG/1 ML SDV ONE (09:27)
--- NOTE | 2019-01-18 09:55 | OPERATIVE REPORT E ---
Operative Report NAME: SHALOM JOSEPH : 1975 AGE: 44Y DATE OF SURGERY: 01/18/2019 ROOM: OR PREOPERATIVE DIAGNOSIS: UTERINE LEIOMYOMA. POSTOPERATIVE DIAGNOSIS: UTERINE LEIOMYOMA. OPERATION: Total abdominal hysterectomy. SURGEON: NICOLE LEYVA M.D. ANESTHESIA: General endotracheal. COMPLICATIONS: None. FINDINGS: Approximately a 16 to 18 weeks size uterus, multinodular with fibroids present. Normal cervix, normal ovaries, tubes were status post salpingectomy. INDICATIONS FOR PROCEDURE: The patient had symptomatic uterine leiomyoma and desired attempt at definitive therapy. The usual risks of bleeding, infection, anesthesia, and damage to organs and tissues was discussed with the patient who understood. PROCEDURE: The patient was taken to the operating room and placed in modified lithotomy position. After adequate anesthesia was ascertained she was prepped and draped in the usual manner for a hysterectomy. Through a Pfannenstiel type incision excision of subcutaneous fat and fascia, peritoneum was entered without difficulty. Abdominal contents packed out of the pelvis and the uterus exteriorized for the procedure. The round ligaments were identified and held. The bladder flap developed and reflected inferiorly and using the LigaSure band device the perimetrium was removed and excised all of the way down to the level of the uterine vessels which were completely let down. Using sharp and blunt dissection at this point and suture ligation with #1 Chromic catgut the uterus and cervix was removed from the vagina. Interrupted #1 Chromic catgut was used for closure of the vagina. Parietoperitoneum was noted to be dry at this point. EXPAREL was placed in subfascial space and the fascia was closed with #1 PDS suture. Skin was approximated with skin cathy for completion. All sponge and needle counts were correct. DICTATING PHYSICIAN: NICOLE LEYVA M.D. [id number] PHY#: [id number] ID: [id number] JOB#: [id number] ACCT: [id number] cc:NICOLE LEYVA M.D. >
[2019-01-18] MEDS ORDERED: HYDROMORPHONE HCL INJ/PF 2 MG/ML AMPULE IV PRN (10:08)
[2019-01-18] MEDS ORDERED: OXYCODONE-ACETAMINOPHEN 5-325 MG TABLET PO PRN (10:10)
[2019-01-18] MEDS ORDERED: PROMETHAZINE HCL INJ 25 MG/1 ML VIAL IM PRN (10:11)
[2019-01-18] MEDS ORDERED: LACTATED RINGERS 1000 ML IV PRN (10:13)
[2019-01-18] MEDS: GABAPENTIN 300 MG CAPSULE PO SCH ×3 (11:52→23:27)
[2019-01-18] MEDS: CEFAZOLIN 1 GM/D5W RTU 1 GM/50 ML RTUPB IV SCH ×2 (11:53→17:31)
[2019-01-18] MEDS ORDERED: LEVOTHYROXINE SODIUM 0.075 MG TABLET PO SCH (12:00)
[2019-01-18] MEDS: LEVOTHYROXINE SODIUM 0.1 MG TABLET PO SCH (12:38)
[2019-01-18] MEDS: LEVOTHYROXINE SODIUM 0.075 MG TABLET PO SCH (12:38)
[2019-01-18] MEDS: HYDROMORPHONE HCL INJ/PF 2 MG/ML AMPULE IV PRN ×2 (12:39→20:08)
[2019-01-18] MEDS: IBUPROFEN 800 MG TABLET PO SCH ×2 (13:28→23:27)
[2019-01-18] MEDS: METHADONE HCL 10 MG TABLET PO SCH ×2 (17:30→23:26)
[2019-01-19] MEDS: GABAPENTIN 300 MG CAPSULE PO SCH (05:24)
[2019-01-19] MEDS: IBUPROFEN 800 MG TABLET PO SCH (05:24)
[2019-01-19] MEDS: LEVOTHYROXINE SODIUM 0.075 MG TABLET PO SCH (05:25)
[2019-01-19] MEDS: LEVOTHYROXINE SODIUM 0.1 MG TABLET PO SCH (05:26)
[2019-01-19] MEDS ORDERED: METHADONE HCL 10 MG TABLET PO SCH (06:00)
[2019-01-19 08:46] VITALS: BP 101/55
[2019-01-19] MEDS ORDERED: LEVOTHYROXINE SODIUM 0.1 MG TABLET PO SCH (12:00)
== END 2019-01-19 10:20 | disposition home or self-care (01) | DRG 743 ==
LOC: INOR 05:39 → 2N 10:18
PROVIDERS: ADMIT Specialist; ATTEND Specialist
PROC: 0UT97ZZ Resection of Uterus, Via Natural or Artificial Opening (ICD-10-PCS; principal; 2019-01-18 07:15)
DX: D25.9 Leiomyoma of uterus, unspecified (principal); F17.200 Nicotine dependence, unspecified, uncomplicated; E89.0 Postprocedural hypothyroidism; F32.9 Major depressive disorder, single episode, unspecified; Z88.6 Allergy status to analgesic agent; Z98.51 Tubal ligation status
CPT/HCPCS: 36415; 71046; 80048; 81001; 81025; 840; 85027; 86850; 86900; 86901; 88307; 93005; 93010; C9290; J0330; J0690; J1100; J1170; J2250; J2370; J2405; J2704; J3010; J3490

== ENCOUNTER → 2019-12-10 | Outpatient (CLI) | payer BC ==
--- NOTE | 2019-12-10 19:04 | EKG REPORT ---
SEVERITY:- BORDERLINE ECG - SINUS RHYTHM BORDERLINE T ABNORMALITIES, ANTERIOR LEADS : Confirmed by: Perla Pyle MD 10-Dec-2019 19:03:29
== END ==
LOC: OD 13:34
PROVIDERS: ATTEND Anesthesiology Pain Medicine
DX: Z09 Encounter for follow-up examination after completed treatment for conditions other than malignant neoplasm (principal); Z79.899 Other long term (current) drug therapy
CPT/HCPCS: 93005; 93010; 93041

== ENCOUNTER → 2020-04-26 | Outpatient (CLI) | payer BC ==
--- NOTE | 2020-04-26 09:52 | RADIOLOGY REPORT (SQ) ---
EXAM DESCRIPTION: CHEST PA/LATERAL IMAGES COMPLETED DATE/TIME: 04/26/2020 9:40 am REASON FOR STUDY: COUGH COMPARISON: 01/11/2019 EXAM PARAMETERS: NUMBER OF VIEWS: two views TECHNIQUE: Digital Frontal and Lateral radiographic views of the chest acquired. RADIATION DOSE: NA LIMITATIONS: none FINDINGS: LUNGS AND PLEURA: No opacities, masses or pneumothorax. No pleural effusion. MEDIASTINUM AND HILAR STRUCTURES: No masses or contour abnormalities. HEART AND VASCULAR STRUCTURES: Heart normal size. No evidence for failure. BONES: No acute findings. HARDWARE: None in the chest. OTHER: No other significant finding. IMPRESSION: NO SIGNIFICANT RADIOGRAPHIC FINDING IN THE CHEST. TECHNICAL DOCUMENTATION: JOB ID: [id number] 2010 [employer]- All Rights Reserved Reading location - IP/workstation name: [email or web address]
== END ==
LOC: OD 09:23
PROVIDERS: ATTEND Family Medicine
DX: R05 Cough (principal)
CPT/HCPCS: 71046